=== PATIENT | male | born 1995 | race American Indian/Alaskan Native ===

== ENCOUNTER 2019-01-21 11:35 | Emergency (ER) | payer OTHER ==
[2019-01-21 11:59] VITALS: BP 117/54
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
[2019-01-21] MEDS ORDERED: FIORICET PO ONE (12:54)
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
== END 2019-01-21 14:05 | disposition home or self-care (01) ==
LOC: ED 11:35
DX: M54.5 Low back pain (principal); M54.2 Cervicalgia; M25.569 Pain in unspecified knee; V49.50XA Passenger injured in collision with unspecified motor vehicles in traffic accident, initial encounter; Z88.2 Allergy status to sulfonamides; Y93.89 Activity, other specified; Y92.410 Unspecified street and highway as the place of occurrence of the external cause; Y99.8 Other external cause status
CPT/HCPCS: 72100